=== PATIENT | male | born 1990 | race American Indian/Alaskan Native ===

== ENCOUNTER 2018-06-11 12:43 | Outpatient (CLI) | payer MEDICARE ==
--- NOTE | 2018-06-11 17:12 | XRay Report ---
FINAL REPORT EXAM: XR ABDOMEN 2V HISTORY: GERD/ ABD BLOATING/NAUSEA TECHNIQUE: supine and erect views of the abdomen PRIORS: None. FINDINGS: Numerous pieces of tubing are present overlying the lower chest in the abdomen. The bowel gas pattern is nonspecific. No free air is identified. Soft tissues have no evidence for m ass shadows or calcifications. The bony structures are intact. IMPRESSION: Nonspecific, nonobstructive bowel gas pattern with no acute process noted.
== END 2018-06-11 12:44 | disposition home or self-care (01) ==
LOC: XRAY 12:43
PROVIDERS: ATTEND Internal Medicine Gastroenterology
DX: K21.9 Gastro-esophageal reflux disease without esophagitis (principal)
CPT/HCPCS: 74019